=== PATIENT | male | born 1995 | race Native Hawaiian/Other Pacific Islander ===

== ENCOUNTER 2018-03-24 18:39 | Emergency (ER) | payer OTHER ==
[~2018-03-24] VITALS: Ht 172.7 cm; Wt 62.1 kg
[2018-03-24 19:45] LABS: PLATELET COUNT 170 K/uL (142-355)
[2018-03-24 19:46] LABS: POTASSIUM 3.7 mmol/L (3.6-5.2); SODIUM 139 mmol/L (136-145)
[2018-03-24 22:26] VITALS: BP 103/66; TEMP 98.2
== END 2018-03-24 22:33 | disposition home or self-care (01) ==
LOC: ED 18:39
PROVIDERS: Family Medicine
DX: F19.10 Other psychoactive substance abuse, uncomplicated (principal)
CPT/HCPCS: 80053; 80307; 80320; 80329; 81000; 85027; 99285

== ENCOUNTER 2020-10-04 12:53 | Emergency (ER) | payer BC ==
[~2020-10-04] VITALS: Ht 172.7 cm; Wt 63.5 kg
[2020-10-04 13:05] VITALS: TEMP 98.7
[2020-10-04 13:49] LABS: PLATELET COUNT 228 K/uL (142-355)
[2020-10-04 13:55] LABS: POTASSIUM 3.8 mmol/L (3.6-5.2)
[2020-10-04 14:12] LABS: PARTIAL THROMBOPLASTIN TIME 24.8 SECONDS (24.5-33.6)
[2020-10-04 16:06] VITALS: BP 134/79
== END 2020-10-04 16:06 | disposition home or self-care (01) ==
LOC: ED 12:53
PROVIDERS: Emergency Medicine
DX: I80.3 Phlebitis and thrombophlebitis of lower extremities, unspecified (principal); L03.116 Cellulitis of left lower limb
CPT/HCPCS: 36415; 80053; 85027; 85610; 85730; 87040; 96361; 96365; 99284; J2543

== ENCOUNTER 2021-03-23 19:40 | Emergency (ER) | payer BC ==
[~2021-03-23] VITALS: Ht 172.7 cm; Wt 68.9 kg
[2021-03-23 20:46] LABS: PLATELET COUNT 242 K/uL (142-355)
[2021-03-23 21:50] VITALS: BP 124/72; TEMP 98.7
== END 2021-03-23 21:54 | disposition home or self-care (01) ==
LOC: ED 19:40
PROVIDERS: Emergency Medicine
DX: I80.8 Phlebitis and thrombophlebitis of other sites (principal); F19.10 Other psychoactive substance abuse, uncomplicated; R79.89 Other specified abnormal findings of blood chemistry
CPT/HCPCS: 36415; 80048; 85027; 85379; 96372; 99283; J1885; J3490

== ENCOUNTER 2022-06-11 16:24 | Observation (INO) | payer BC ==
[~2022-06-11] VITALS: Ht 172.7 cm; Wt 69.1 kg
[2022-06-11 16:32] VITALS: BP 126/77; TEMP 98.3
[2022-06-11 17:22] LABS: PLATELET COUNT 160 K/uL (142-355)
[2022-06-11 17:30] LABS: POTASSIUM 4.2 mmol/L (3.6-5.2)
[2022-06-11 21:46] VITALS: BP 99/64; TEMP 98; Ht 172.7 cm; Wt 69.1 kg
[2022-06-12] VITALS: BP 123/69; TEMP 98.5
[2022-06-12 04:00] VITALS: BP 111/55; TEMP 97.9
[2022-06-12 05:20] LABS: PLATELET COUNT 121 K/uL (142-355)
[2022-06-12 05:43] LABS: POTASSIUM 3.8 mmol/L (3.6-5.2)
[2022-06-12 08:00] VITALS: BP 118/71; TEMP 98.3
[2022-06-12 12:00] VITALS: BP 115/69; TEMP 97.9
[2022-06-12 16:00] VITALS: BP 121/69; TEMP 97.7
[2022-06-12 20:00] VITALS: BP 115/68; TEMP 97.3
[2022-06-13] VITALS: BP 120/62; TEMP 98.1
[2022-06-13 04:00] VITALS: BP 112/69; TEMP 97.6
[2022-06-13 07:48] LABS: PARTIAL THROMBOPLASTIN TIME 32.8 SECONDS (24.5-33.6)
[2022-06-13 07:51] LABS: POTASSIUM 3.8 mmol/L (3.6-5.2)
[2022-06-13 08:00] VITALS: BP 117/74; TEMP 98.2
[2022-06-13 12:00] VITALS: BP 120/78; TEMP 98.1
== END 2022-06-13 12:53 | disposition home or self-care (01) ==
LOC: ED 16:24 → MED/SURG 19:00
PROVIDERS: Internal Medicine; ADMIT Emergency Medicine; ATTEND Internal Medicine
DX: K72.00 Acute and subacute hepatic failure without coma (principal); R10.11 Right upper quadrant pain; E46 Unspecified protein-calorie malnutrition; F15.10 Other stimulant abuse, uncomplicated; F12.10 Cannabis abuse, uncomplicated
CPT/HCPCS: 36415; 80053; 80074; 80143; 80179; 80307; 80320; 81002; 82550; 85027; 85610; 85730; 87635; 96360; 96361; 96374; 96375; 96376; 99220; 99283; G0378; J1885; J2270; J2405; J3411; U0003

== ENCOUNTER 2022-08-09 08:37 | Emergency (ER) | payer BC ==
[~2022-08-09] VITALS: Ht 172.7 cm; Wt 68.9 kg
[2022-08-09 08:45] VITALS: TEMP 97.2
[2022-08-09 10:15] LABS: PLATELET COUNT 265 K/uL (142-355)
[2022-08-09 11:54] VITALS: BP 124/81
== END 2022-08-09 11:58 | disposition home or self-care (01) ==
LOC: ED 08:37
PROVIDERS: Internal Medicine
DX: F15.10 Other stimulant abuse, uncomplicated (principal)
CPT/HCPCS: 36415; 80307; 85027; 87040; 99283